=== PATIENT | female | born 1955 | race Caucasian/White ===

== ENCOUNTER 2022-11-10 18:32 | Outpatient (CLI) | payer MEDICARE, SELFPAY ==
--- NOTE | 2022-11-10 19:00 | CRLHL7_ITS ---
For Patients: As a result of the Century Cures Act, medical imaging exams and procedure reports are released immediately into your electronic medical record. You may view this report before your referring provider. If you have questions, please contact your health care provider. BILATERAL SCREENING MAMMOGRAM WITH COMPUTER-AIDED DETECTION AND TOMOSYNTHESIS TECHNIQUE: CC and MLO views were obtained. These mammographic images have been obtained using full-field digital technique. These mammographic images were interpreted with the benefit of computer-aided detection. Breast Tomosynthesis was used in this interpretation. COMPARISON FILM: 10/31/21, 08/28/20, 08/03/19. FINDINGS: There are scattered areas of fibroglandular density IMPRESSION: There is no radiographic evidence for malignancy. ASSESSMENT: BI-RADS Category 1: Negative RECOMMENDATION: Routine screening mammogram in 1 year. A lay language report of this examination will be provided to the patient. Royce Mendenhall M.D. Diagnostic Radiologist [email or web address] Transcribed: 3:54 pm DW/Dictated by: Royce Mendenhall MD @ 11/11/2022 12:29:00 PM (Electronically Signed)
== END 2022-11-10 18:33 | disposition home or self-care (01) ==
LOC: MAMMO 18:32
PROVIDERS: PCP Physician Assistant Medical; Visit Provider Physician Assistant Medical
DX: Z12.31 Encounter for screening mammogram for malignant neoplasm of breast (principal)
CPT/HCPCS: 77063; 77067

== ENCOUNTER 2022-11-26 15:08 | Outpatient (CLI) | payer MEDICARE, SELFPAY ==
[2022-11-26 16:28] LABS: Albumin* 4.4 g/dL (3.3-5.0); Chloride* 106 mmol/L (96-114); Sodium* 142 mmol/L (135-149)
[2022-11-26 16:29] LABS: Potassium* 5.3 mmol/L (3.6-5.1)
[2022-11-26 16:30] LABS: Cholesterol* 165 mg/dL (90-199)
[2022-11-26 16:31] LABS: Alkaline Phosphatase* 89 U/L (40-150); Aspartate Amino Transferase* 30 U/L (12-35); Bilirubin Total* 0.4 mg/dL (0.1-1.5); Blood Urea Nitrogen* 23 mg/dL (7-30); Carbon Dioxide* 29 mmol/L (20-32); Estimated Glomerular Filt Rate 61 ml/min; Glucose* 93 mg/dL (60-115); Total Protein* 7.1 g/dL (6.0-8.3)
[2022-11-26 16:32] LABS: Alanine Aminotransferase* 22 U/L (4-35); HDL Cholesterol* 62 mg/dL (>=50); LDL Cholesterol Calculated 78 mg/dL (<100); Triglycerides* 124 mg/dL (40-149)
== END 2022-11-26 15:09 | disposition home or self-care (01) ==
PROVIDERS: PCP Physician Assistant Medical; Visit Provider Physician Assistant Medical
DX: Z00.00 Encounter for general adult medical examination without abnormal findings (principal); E78.5 Hyperlipidemia, unspecified; F41.9 Anxiety disorder, unspecified
CPT/HCPCS: 80053; 80061

== ENCOUNTER 2022-12-11 09:36 | Outpatient (CLI) | payer MEDICARE, SELFPAY ==
[2022-12-11 21:56] LABS: Potassium* 4.6 mmol/L (3.6-5.1)
== END 2022-12-11 09:37 | disposition home or self-care (01) ==
LOC: LKVREF 11:00
PROVIDERS: PCP Physician Assistant Medical; Visit Provider Physician Assistant Medical
DX: E87.5 Hyperkalemia (principal)
CPT/HCPCS: 84132

== ENCOUNTER 2023-06-24 09:29 | Outpatient (CLI) | payer MEDICARE, SELFPAY | END 2023-06-24 09:30 | disposition home or self-care (01) | LOC: NFLDREF 06-25 14:32 | PROVIDERS: PCP Physician Assistant Medical; Referring Provider Physician Assistant Medical; Visit Provider Physician Assistant Medical | DX: E78.5 Hyperlipidemia, unspecified (principal) | CPT/HCPCS: 80061 ==

== ENCOUNTER 2023-09-29 09:00 | Outpatient (CLI) | payer MEDICARE, SELFPAY | END 2023-09-29 09:01 | disposition home or self-care (01) | LOC: NFLDREF 20:53 | PROVIDERS: PCP Physician Assistant Medical; Referring Provider Physician Assistant Medical; Visit Provider Physician Assistant Medical | DX: E78.5 Hyperlipidemia, unspecified (principal) | CPT/HCPCS: 80061; 80076 ==

== ENCOUNTER 2023-12-06 10:23 | Outpatient (CLI) | payer MEDICARE, SELFPAY | END 2023-12-06 10:24 | disposition home or self-care (01) | PROVIDERS: PCP Physician Assistant Medical; Visit Provider Physician Assistant Medical | DX: E78.2 Mixed hyperlipidemia (principal) | CPT/HCPCS: 80053; 80061 ==

== ENCOUNTER 2023-12-22 09:01 | Outpatient (CLI) | payer MEDICARE, SELFPAY ==
--- NOTE | 2023-12-22 09:15 | CRLHL7_ITS ---
For Patients: As a result of the Century Cures Act, medical imaging exams and procedure reports are released immediately into your electronic medical record. You may view this report before your referring provider. If you have questions, please contact your health care provider. BILATERAL SCREENING MAMMOGRAM WITH COMPUTER-AIDED DETECTION AND TOMOSYNTHESIS TECHNIQUE: CC and MLO views were obtained. These mammographic images have been obtained using full-field digital technique. These mammographic images were interpreted with the benefit of computer-aided detection. Breast Tomosynthesis was used in this interpretation. COMPARISON FILM: 11/10/22, 10/31/21, 08/28/20. FINDINGS: There are scattered areas of fibroglandular density. IMPRESSION: There is no radiographic evidence for malignancy. ASSESSMENT: BI-RADS Category 2: Benign RECOMMENDATION: Routine screening mammogram in 1 year. A lay language report of this examination will be provided to the patient. Royce Mendenhall M.D. Diagnostic Radiologist [email or web address] SP/Dictated by: Royce Mendenhall MD @ 12/22/2023 12:36:00 PM (Electronically Signed)
== END 2023-12-22 09:02 | disposition home or self-care (01) ==
LOC: MAMMO 09:02
PROVIDERS: PCP Physician Assistant Medical; Visit Provider Physician Assistant Medical
DX: Z12.31 Encounter for screening mammogram for malignant neoplasm of breast (principal)
CPT/HCPCS: 77063; 77067

== ENCOUNTER 2023-12-30 13:00 | Outpatient (CLI) | payer MEDICARE, SELFPAY ==
--- NOTE | 2023-12-30 13:30 | CRLHL7_ITS ---
For Patients: As a result of the Century Cures Act, medical imaging exams and procedure reports are released immediately into your electronic medical record. You may view this report before your referring provider. If you have questions, please contact your health care provider. DXA BONE MINERAL DENSITY STUDY Reason for exam: Breast cancer screening, osteoarthritis. Current height (in): 66. Weight (lb): 153. Menopause age: 48. Ethnicity: White. 1. Have you had a previous hip or vertebral fracture? No. 2. Have you had any fractures during your adult life which did not result from significant trauma (e.g., auto accident)? No. 3. Did either of your parents have a hip fracture? No. 4. Do you smoke? No. 5. Have you ever taken Glucocorticoids? No. 6. Do you have rheumatoid arthritis? No. 7. Do you have secondary osteoporosis? No. 8. Do you drink 3 or more alcoholic drinks per day? No. 9. Are you being treated for osteoporosis? No. 10. Have you ever taken any of the following medications: Actonel, Evista, Fosamax, Miacalcin, Reclast, Boniva, Forteo, HRT (i.e. estrogen/hormone therapy), Protelos, Prolia, Vitamin D, Calcium, other ??? please specify. ANSWER: No. 11. Do you have any of the following medical conditions: Anorexia or bulimia, asthma or emphysema, end stage renal disease, hyperparathyroidism, any seizure disorders, cancer, inflammatory bowel diseases, hysterectomy, other ??? please specify. ANSWER: Yes, Osteoarthritis. Left hip 2016, right hip 2020. 12. What was your maximum height (inches)? 66. 13. Do you perform weight bearing exercise regularly? No. 14. Do you regularly consume dairy products? Yes. 15. Do you drink caffeinated beverages? No. 16. At what age did your period start? 11. 17. Are you premenopausal? No. 18. How many full term pregnancies have you had? 1. 19. Have you ever missed your period for more than 6 months in a row (not including or menopause)? No. TECHNIQUE: Bone mineral density study was performed using the [employer] FINDINGS: The results of the study expressed as bone mineral density (BMD) are as follows: Lumbar spine L1 to L4: BMD: 1.049 g/cm2. T-score: 0.0. Z-score: 2.1. Radius Left 33%: BMD: 0.622 g/cm2. T-score: -1.2 . Z-score: 0.9 IMPRESSION: Osteopenia. *Comparison exams done prior to 04/2020 were performed on different unit, [facility]. COMPARISON: Compared with scan of 10/29/2021, the bone mineral density has decreased by 0.7 percent at the spine and increased 8.7 percent at the radius. Royce Mendenhall M.D. Diagnostic Radiologist [email or web address] SP/Dictated by: Royce Mendenhall MD @ 12/30/2023 3:38:00 PM (Electronically Signed)
== END 2023-12-30 13:01 | disposition home or self-care (01) ==
LOC: RAD 13:01
PROVIDERS: PCP Physician Assistant Medical; Visit Provider Physician Assistant Medical
DX: Z13.820 Encounter for screening for osteoporosis (principal); M85.89 Other specified disorders of bone density and structure, multiple sites; Z78.0 Asymptomatic menopausal state
CPT/HCPCS: 77080

== ENCOUNTER 2024-10-24 11:23 | Outpatient (CLI) | payer MEDICARE, SELFPAY ==
--- NOTE | 2024-10-24 13:46 | W.ANESCHARGE ---
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
== END 2024-10-24 11:24 | disposition home or self-care (01) ==
LOC: OP CLINIC 11:24
PROVIDERS: PCP Physician Assistant Medical; Visit Provider Surgery
DX: Z12.11 Encounter for screening for malignant neoplasm of colon (principal); D12.3 Benign neoplasm of transverse colon; D12.5 Benign neoplasm of sigmoid colon; K64.4 Residual hemorrhoidal skin tags; Z80.0 Family history of malignant neoplasm of digestive organs
CPT/HCPCS: 00811; 45380; 45385; 88305; 99100; J2704

== ENCOUNTER 2025-01-03 14:49 | Outpatient (CLI) | payer MEDICARE, SELFPAY | END 2025-01-03 14:50 | disposition home or self-care (01) | LOC: LKVREF 14:51 | PROVIDERS: PCP Physician Assistant Medical; Visit Provider Family Medicine | DX: R13.10 Dysphagia, unspecified (principal); R07.89 Other chest pain | CPT/HCPCS: 84443 ==

== ENCOUNTER 2025-01-09 14:33 | Outpatient (CLI) | payer MEDICARE, SELFPAY ==
[2025-01-09] MEDS: PERFLUTREN LIPID MICROSPHERES 2 ML VIAL IVP (15:52)
[2025-01-09 16:15] VITALS: BP 106/70; PULSE 97
--- NOTE | 2025-01-09 16:35 | W.PM.STED ---
Stress Test Note Date Date of test: 01/09/25 Providers Primary care provider: Loretta Salinas Stress test physician: Mani Bolivar Stress Test Note Stress test ordered: Stress Echo Indication for test: Shortness of Breath Stress test medicine: Definity Results discussion: 69-year-old female presents for the above-mentioned test, discussion the risks benefits and side effects along with review of the cardiac stress test medical history form is done. EKG initial shows ventricular rate 69 blood pressure 137/84. No acute ST wave changes, standard Javier protocol is employed over a time course of for 3 minutes 46 seconds with achieved a metabolic equivalent of 5.4 Mets, maximum heart rate was 152 which is 119% of the maximum. Maximum blood pressure is 150 and 70. Test is terminated because of shortness of breath and fatigue, she had no other chest pain shortness of breath or any other anginal equivalent symptoms, there was no acute ST wave changes there is no dysrhythmias. Impression: Negative electrographic portion of stress echo Follow up suggested: Home rest follow-up per cardiology reading the echo portion. Clinical correlation with this will be needed, patient left this testing facility in good condition.
== END 2025-01-09 14:34 | disposition home or self-care (01) ==
PROVIDERS: PCP Physician Assistant Medical; Visit Provider Family Medicine
DX: R06.09 Other forms of dyspnea (principal); R07.89 Other chest pain
CPT/HCPCS: 93016; 93325; 93351; Q9957

== ENCOUNTER 2025-02-07 13:37 | Outpatient (CLI) | payer MEDICARE, SELFPAY | END 2025-02-07 13:38 | disposition home or self-care (01) | PROVIDERS: PCP Physician Assistant Medical; Visit Provider Physician Assistant Medical | DX: E78.5 Hyperlipidemia, unspecified (principal) | CPT/HCPCS: 80053; 80061 ==

== ENCOUNTER 2025-02-27 07:40 | Outpatient (CLI) | payer MEDICARE, SELFPAY ==
[2025-02-27 10:08] VITALS: BP 93/48; PULSE 89; RESP 18
[2025-02-27] MEDS: REGADENOSON 0.4 MG/5 ML SYRINGE IVP (10:08)
[2025-02-27] MEDS: SODIUM CHLORIDE 0.9 % (FLUSH) 10 ML SYRINGE IVF (10:08)
--- NOTE | 2025-02-27 13:08 | W.PM.STED ---
Stress Test Note Date Date of test: 02/27/25 Providers Primary care provider: Loretta Salinas Stress test physician: Mani Bolivar Stress Test Note Stress test ordered: Lexiscan Indication for test: Shortness of breath and chest pressure Stress test medicine: Lexiscan Results discussion: This very nice lady presents for the above test after discussion risks benefits and side effects she would like to proceed, pretest EKG shows normal sinus rhythm, with a ventricular rate of 74, blood pressure 109/72. Pretest EKG shows normal sinus rhythm with a ventricular rate of 74, no ST wave changes, standard Lexiscan initially started as a walking protocol, then due to nausea and chest pressure was stopped. Her maximum heart rate was 118, her maximum blood pressure was 93 and 48, she did dip down to a systolic of 75 during the test when she was most symptomatic. She recovered quite nicely, during the recovery period, there was occasional PVCs noted, no appreciable ST wave depression was noted, on the tracing. Impression: Positive subjective stress test with infusion of Lexiscan, negative objective, Follow up suggested: Await nuclear images, clinical correlation with this will be needed, the result of her positivity of the test may be due to infusion of the medication, she recovered normally. Was asymptomatic when left. Clinical correlation with this and the above results will be needed.
== END 2025-02-27 10:45 | disposition home or self-care (01) ==
LOC: STRESS 07:41
PROVIDERS: PCP Physician Assistant Medical; Visit Provider Physician Assistant Medical
DX: R06.09 Other forms of dyspnea (principal); R07.9 Chest pain, unspecified
CPT/HCPCS: 78452; 93016; 93017; A9500; J2785

== ENCOUNTER 2025-05-22 13:35 | Outpatient (CLI) | payer MEDICARE, SELFPAY ==
--- NOTE | 2025-05-22 13:40 | MM_ITS ---
Patient: RAMA PENALOZA Facility:?[facility] Patient ID:?[id number] Site Patient [id number]:?[id number]. Site :?[id number] Study:?XRay-Breast 3D Ta SCREENING-05/22/2025 2:14:02 PM Ordering Physician:Gustavo Burgos Final Report: INDICATION: BILATERAL SCREENING MAMMOGRAM, ASYMPTOMATIC 69 Y/O FEMALE COMPARISON: 12/22/2023, 11/10/2022, 10/31/2021 TECHNIQUE: Digital mammogram in CC and MLO projections including computer-aided detection (CAD) and tomosynthesis. BREAST COMPOSITION: There are scattered areas of fibroglandular density. FINDINGS: No suspicious findings. ASSESSMENT: BI-RADS 2 Benign RECOMMENDATION: Annual screening mammogram. A lay language report of this examination will be provided to the patient. Dictated by: Royce Mendenhall MD @ 05/24/2025 09:12:27 Signed by:?Royce Mendenhall MD @05/24/2025 9:12:27 AM (Electronic Signature)
== END 2025-05-22 13:36 | disposition home or self-care (01) ==
LOC: MAMMO 13:36
PROVIDERS: PCP Physician Assistant Medical; Visit Provider Physician Assistant Medical
DX: Z12.31 Encounter for screening mammogram for malignant neoplasm of breast (principal)
CPT/HCPCS: 77063; 77067

== ENCOUNTER 2025-05-30 10:42 | Outpatient (CLI) | payer MEDICARE, SELFPAY ==
--- NOTE | 2025-05-30 11:00 | CRLHL7_ITS ---
For Patients: As a result of the Century Cures Act, medical imaging exams and procedure reports are released immediately into your electronic medical record. You may view this report before your referring provider. If you have questions, please contact your health care provider. INDICATION: Left-sided throat fullness. Comparison none. TECHNIQUE: CT soft tissue neck with IV contrast. ICD 370, 74 cc. FINDINGS: Normal bilateral parotid and submandibular glands. Normal thyroid gland. Scattered small normal-sized cervical lymph nodes bilaterally. No supraclavicular superior mediastinal adenopathy. Nasopharynx and oropharynx are clear. No inflammation within the paravertebral fat pads or retropharyngeal space. Tiny calcified tonsilliths on the low right. Normal thickness of the epiglottis. Normal glottis with symmetric vocal cords. No abnormal elongation of the styloid processes. Normal glottis with symmetric vocal cords. Normal thickness of the epiglottis. Lung apices are clear. Cervical spondylosis with multilevel disc degeneration facet arthropathy. Mildly prominent ventral bridging osteophyte on the left at C5-6 (series 5, image 37) with mild mass effect upon the cervical esophagus (series 3, image 50). It is uncertain if this can account for the patient`s reported symptoms. Visualized paranasal sinuses and mastoid air cells are clear. IMPRESSION: 1. No adenopathy. 2. Cervical spondylosis. Mildly prominent ventral bridging osteophyte on the left at C5-6 with mild mass effect upon the cervical esophagus. It is uncertain if this can account for the patient`s reported symptoms 3. Remaining deep soft tissues of the neck are normal. Please note that all CT scans at this facility use dose modulation, iterative reconstruction, and/or weight-based dosing when appropriate to reduce radiation dose to as low as reasonably achievable. Dictated by Cayden Tiwari MD @ 05/30/2025 5:15:28 PM (Electronically Signed)
[2025-05-30 11:20] LABS: Creatinine* 1.0 mg/dL (0.5-1.5); Estimated Glomerular Filt Rate 60 ml/min
== END 2025-05-30 10:43 | disposition home or self-care (01) ==
LOC: CT 10:43
PROVIDERS: PCP Physician Assistant Medical; Visit Provider Physician Assistant Medical
DX: R09.89 Other specified symptoms and signs involving the circulatory and respiratory systems (principal); M47.892 Other spondylosis, cervical region
CPT/HCPCS: 36415; 70491; 82565; Q9967

== ENCOUNTER 2025-08-21 11:53 | Outpatient (CLI) | payer MEDICARE, SELFPAY | END 2025-08-21 11:54 | disposition home or self-care (01) | LOC: NFLDREF 08-27 01:56 | PROVIDERS: PCP Physician Assistant Medical; Referring Provider Physician Assistant Medical; Visit Provider Family Medicine | DX: Z01.818 Encounter for other preprocedural examination (principal) | CPT/HCPCS: 80048 ==

== ENCOUNTER 2025-09-07 09:46 | Day surgery (SDC) | payer MEDICARE, SELFPAY ==
[2025-09-07] VITALS (14 sets, daily range): BP systolic 131–159; BP diastolic 83–99; PULSE 62–72; RESP 16; TEMP 36.3–36.4; O2SAT 95–100; BMI 24.2
[2025-09-07] MEDS: LACTATED RINGERS 1000 ML 1,000 ML 100 ML IV (10:30)
[2025-09-07] MEDS: SODIUM CHLORIDE 0.9 % (FLUSH) 10 ML SYRINGE IVF (10:30)
--- NOTE | 2025-09-07 12:04 | W.ANESCHARGE ---
Anesthesia Charges Start Date/Time Anesthesia Start Date: 09/07/25 Anesthesia Start Time: 11:29 Stop Date/Time Anesthesia Stop Date: 09/07/25 Anesthesia Stop Time: 12:01 Summary Extremes of Age - Over 70 or under 1: MDA Coding CPT Codes CPT Codes: ANESTH NOSE/SINUS SURGERY - 17393 ([id number]) QK - ANIME ARTIST 2-4 CNCRNT ANES PROC, QX - MERCHANDISE FLOW ASSOCIATE SVC W/ MD MED DIRECTION, P1 - NORMAL HEALTHY PATIENT Additional Codes: Summary - Extremes of Age - Over 70 or under 1: MDA ([id number])
--- NOTE | 2025-09-07 12:05 | P.ANES_ITS ---
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
--- NOTE | 2025-09-07 12:05 | W.ANESCHARGE ---
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
--- NOTE | 2025-09-07 12:16 | W.PM.ENTPROC ---
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 A upper dental guard was placed. The Dedo laryngoscope was then inserted and the cyst identified adjacent to the epiglottis and contiguous with the tongue base. And in the cyst was unroofed followed up by a small amount of mucoid fluid this was aspirated. Specimens were sent to pathology. The patient procedure was taken recovery in satisfactory condition. Blood loss was less than 10 mL. Surgeon: Tommy Soto MD
== END 2025-09-07 13:43 | disposition home or self-care (01) ==
LOC: OR 09:48
PROVIDERS: PCP Physician Assistant Medical; Visit Provider Otolaryngology
PROC: 0CJS8ZZ Inspection of Larynx, Via Natural or Artificial Opening Endoscopic (ICD-10-PCS; CPT 31535; principal; 2025-09-07 11:15)
DX: J38.7 Other diseases of larynx (principal)
CPT/HCPCS: 31535; 00160; 00170; 00320; 88305; 99100; A9270; J0330; J1100; J2405; J2704; J3010; J7120